=== PATIENT | male | born 1995 | race Hispanic/Latino ===

== ENCOUNTER 2019-06-18 02:20 | Emergency (ER) | payer SELFPAY ==
[2019-06-18] MEDS ORDERED: Lidocaine 1% w/Epinephrine 1:100K 20 ML VIAL ONE (03:44)
[2019-06-18] MEDS ORDERED: Naproxen 500 MG TAB ONE (03:53)
[2019-06-18] MEDS ORDERED: Acetaminophen 500 MG TAB ONE (03:53)
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
== END 2019-06-18 04:50 | disposition home or self-care (01) ==
LOC: ERS 02:20
DX: S02.2XXA Fracture of nasal bones, initial encounter for closed fracture (principal); S01.411A Laceration without foreign body of right cheek and temporomandibular area, initial encounter; Y04.0XXA Assault by unarmed brawl or fight, initial encounter
CPT/HCPCS: 12011; 70486

== ENCOUNTER 2019-06-29 14:47 | Emergency (ER) | payer SELFPAY | END 2019-06-29 15:22 | disposition home or self-care (01) | LOC: ERS 14:47 | DX: S01.81XD Laceration without foreign body of other part of head, subsequent encounter (principal) ==